=== PATIENT | female | born 1970 | race Caucasian/White ===

== ENCOUNTER 2018-11-24 17:52 | Emergency (ER) | payer OTHER ==
[2018-11-24] MEDS ORDERED: ONDANSETRON 4 MG/2 ML VIAL ONE (18:20)
[2018-11-24] MEDS ORDERED: MORPHINE 4 MG/ML SYR ONE ×2 (18:20→19:09)
[2018-11-24 18:35] LABS: Absolute Lymphocytes (CBC) 3.2 K/uL (0.7-4.9); Absolute Monocytes 0.5 K/uL (0.1-1.3); Absolute Neutrophil 3.5 K/uL (1.8-8.0); Basophils % 0.5 % (0-1.3); Eosinophils % 5.7 % (0-4.4); Hematocrit 40.9 % (36.0-45.0); Lymphocytes % 42.2 % (15.3-44.8); MPV 10.1 fL (7.6-11.3); Monocytes % 6.6 % (3.3-12.3); RBC Red Blood Cell Count 4.59 M/uL (3.86-4.86)
[2018-11-24 18:47] LABS: Albumin 3.9 g/dL (3.4-5.0); Bilirubin Direct 0.1 mg/dL (0-0.2); Bilirubin Total 0.3 mg/dL (0.2-1.0); Potassium 3.8 mmol/L (3.5-5.1); Protein, Total 7.2 g/dL (6.4-8.2)
--- NOTE | 2018-11-24 19:30 | RAD REPORT ---
EXAM DESCRIPTION: CT - Abdomen Pelvis W Contrast - 11/24/2018 7:04 pm CLINICAL HISTORY: Abdominal pain COMPARISON: none. TECHNIQUE: Computed axial tomography of the abdomen pelvis was obtained. 100 cc Isovue-300 was admin istered intravenously. Oral contrast was not requested which limits evaluation of bowel. All CT scans are performed using dose optimization technique as appropriate and may include automated exposure control or mA/KV adjustment according to patient size. FINDINGS: Small hepatic cysts Spleen, pancreas, adrenal and kidneys appear unremarkable. There is no evidence of diverticulitis. The cecum lies midline within the upper pelvis The stomach is distended. Fluid is present within nondilated bowel. An IUD is present within a retroverted uterus Moderate amount of stool is present in the colon IMPRESSION: Fluid within nondilated small bowel may indicate an enteritis Distended stomach
--- NOTE | 2018-11-24 20:03 | EDPHYS ---
Physician Documentation [facility] Name: Tess Schultz Age: 48 yrs Sex: Female : 1970 Arrival Date: 11/24/2018 Time: 17:58 Bed 15 Private MD: ED Physician Mark Ackerman HPI: 11/24 18:16 This 48 yrs old Female presents to ER via Wheelchair with complaints of abdominal pain. jr8 18:16 The patient presents with abdominal pain in the lower abdomen. Onset: The jr8 symptoms/episode began/occurred acutely, today. The symptoms do not radiate. Associated signs and symptoms: none. The symptoms are described as stabbing. Modifying factors: The symptoms are alleviated by nothing, the symptoms are aggravated by nothing. Severity of pain: At its worst the pain was moderate in the emergency department the pain is unchanged. The patient has not experienced similar symptoms in the past. The patient has not recently seen a physician. 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 - Social history:: Smoking status: Patient/guardian denies using tobacco. - Ebola Screening: : No symptoms or risks identified at this time. ROS: 18:16 Eyes: Negative for injury, pain, redness, and discharge, ENT: Negative for injury, jr8 pain, and discharge, Neck: Negative for injury, pain, and swelling, Cardiovascular: Negative for chest pain, palpitations, and edema, Respiratory: Negative for shortness of breath, cough, wheezing, and pleuritic chest pain, Back: Negative for injury and pain, MS/Extremity: Negative for injury and deformity, Skin: Negative for injury, rash, and discoloration, Neuro: Negative for headache, weakness, numbness, tingling, and seizure. 18:16 Abdomen/GI: Positive for abdominal pain, Negative for nausea, vomiting, diarrhea, constipation, abdominal cramps, abdominal distension, anorexia, dysphagia, hematemesis, black/tarry stool, rectal pain, rectal bleeding, bowel incontinence, flatulence. Exam: 18:16 Eyes: Pupils equal round and reactive to light, extra-ocular motions intact. Lids and jr8 lashes normal. Conjunctiva and sclera are non-icteric and not injected. Cornea within normal limits. Periorbital areas with no swelling, redness, or edema. ENT: Nares patent. No nasal discharge, no septal abnormalities noted. Tympanic membranes are normal and external auditory canals are clear. Oropharynx with no redness, swelling, or masses, exudates, or evidence of obstruction, uvula midline. Mucous membranes moist. Neck: Trachea midline, no thyromegaly or masses palpated, and no cervical lymphadenopathy. Supple, full range of motion without nuchal rigidity, or vertebral point tenderness. No Meningismus. Cardiovascular: Regular rate and rhythm with a normal S1 and S2. No gallops, murmurs, or rubs. Normal PMI, no JVD. No pulse deficits. Respiratory: Lungs have equal breath sounds bilaterally, clear to auscultation and percussion. No rales, rhonchi or wheezes noted. No increased work of breathing, no retractions or nasal flaring. Back: No spinal tenderness. No costovertebral tenderness. Full range of motion. Skin: Warm, dry with normal turgor. Normal color with no rashes, no lesions, and no evidence of cellulitis. MS/ Extremity: Pulses equal, no cyanosis. Neurovascular intact. Full, normal range of motion. Neuro: Awake and alert, GCS 15, oriented to person, place, time, and situation. Cranial nerves II-XII grossly intact. Motor strength 5/5 in all extremities. Sensory grossly intact. Cerebellar exam normal. Normal gait. 18:16 Abdomen/GI: Inspection: abdomen appears normal, Bowel sounds: active, all quadrants, Palpation: soft, in all quadrants, moderate abdominal tenderness, in the right lower quadrant and left lower quadrant, mass, is not appreciated, rebound tenderness, is not appreciated, voluntary guarding, is elicited in the right lower quadrant and left lower quadrant, involuntary guarding, is not appreciated, no appreciated organomegaly, Indicators: McBurney's point is not tender, Aparicio's sign is negative, Rovsing's sign is negative, Obturator sign is negative, Psoas sign is negative, Liver: tenderness, is not appreciated. Vital Signs: 18:03 BP 144 / 102; Pulse 62; Resp 26; Temp 98.0; Pulse Ox 100% ; Weight 74.84 kg; Height 5 ph ft. 8 in. (172.72 cm); Pain 8/10; 19:30 BP 116 / 78; Pulse 61; Resp 16; Pulse Ox 100% on R/A; jb4 20:20 BP 104 / 75; Pulse 58; Resp 16; Pulse Ox 100% on R/A; jb4 18:03 Body Mass Index 25.09 (74.84 kg, 172.72 cm) ph MDM: 18:02 Patient medically screened. jr8 19:55 Differential diagnosis: appendicitis, bowel obstruction, diverticulitis, gastritis, jr8 non-specific abd pain, pancreatitis, Pyelonephritis, Ureterolithiasis, urinary tract infection, colitis. Data reviewed: vital signs, nurses notes, lab test result(s), radiologic studies, CT scan. Data interpreted: Pulse oximetry: on room air is 100 %. Interpretation: normal. Counseling: I had a detailed discussion with the patient and/or guardian regarding: the historical points, exam findings, and any diagnostic results supporting the discharge/admit diagnosis, lab results, radiology results, the need for outpatient follow up, a family practitioner, to return to the emergency department if symptoms worsen or persist or if there are any questions or concerns that arise at home. Response to treatment: the patient's symptoms have markedly improved after treatment. Special discussion: Based on the patient's Hx, exam, and Dx evaluation, there is no indication for emergent surgery or inpatient Tx. It is understood by the patient/guardian that if the Sx's persist or worsen they need to return immediately for re-evaluation. 11/24 18:08 Order name: Basic Metabolic Panel; Complete Time: 18:55 ph 11/24 18:08 Order name: CBC with Diff; Complete Time: 18:55 ph 11/24 18:08 Order name: Creatinine for Radiology; Complete Time: 18:55 ph 11/24 18:08 Order name: Hepatic Function; Complete Time: 18:55 ph 11/24 18:08 Order name: Lipase; Complete Time: 18:55 ph 11/24 18:16 Order name: CT Abd/Pelvis - W/Contrast; Complete Time: 19:32 jr8 11/24 18:08 Order name: IV Saline Lock; Complete Time: 18:20 ph 11/24 18:08 Order name: Labs collected and sent; Complete Time: 18:20 ph Administered Medications: 18:19 Drug: Zofran 4 mg Route: IVP; Site: left antecubital; ph 19:03 Follow up: Response: No adverse reaction; Nausea is decreased ph 18:20 Drug: morphine 4 mg Route: IVP; Site: left antecubital; ph 19:03 Follow up: Response: No adverse reaction; Pain is unchanged, physician notified ph 19:21 Drug: morphine 4 mg Route: IVP; Site: left antecubital; jb4 19:47 Follow up: Response: No adverse reaction; Pain is decreased jb4 20:10 Drug: Reglan 10 mg Route: IVP; Site: left antecubital; jb4 20:15 Follow up: Response: No adverse reaction jb4 20:13 Drug: Bentyl 20 mg Route: PO; jb4 20:14 Follow up: Response: No adverse reaction jb4 20:14 Drug: Benadryl 25 mg Route: IVP; Site: left antecubital; jb4 20:14 Follow up: Response: No adverse reaction jb4 Disposition: 11/24/18 20:02 Discharged to Home. Impression: Enteritis. - Condition is Stable. - Discharge Instructions: Viral Gastroenteritis, Adult. - Prescriptions for Bentyl 20 mg Oral Tablet - take 1 tablet by ORAL route every 6 hours As needed; 20 tablet. Zofran 4 mg Oral Tablet - take 1 tablet by ORAL route every 8 hours As needed; 20 tablet. Tylenol- Codeine #3 300-30 mg Oral Tablet - take 2 tablets by ORAL route every 6 hours As needed; 12 tablet. - Medication Reconciliation Form, Thank You Letter, Antibiotic Education, Prescription Opioid Use form. - Follow up: Private Physician; When: 2 - 3 days; Reason: Recheck today's complaints, Continuance of care, Re-evaluation by your physician. - Problem is new. - Symptoms have improved. Addendum: 11/28/2018 11:06 Co-signature as Attending Physician, Mark Ackerman MD I agree with the assessment and c camacho plan of care. Signatures: Dispatcher [employer] [facility] Mark Ackerman MD MD cha Roszak, Josh, PA PA jr8 Sherri Patiño RN RN Kin Lubin RN RN jb4 Corrections: (The following items were deleted from the chart) 11/24 20:32 20:02 11/24/2018 20:02 Discharged to Home. Impression: Enteritis. Condition is Stable. jb4 Forms are Medication Reconciliation Form, Thank You Letter, Antibiotic Education, Prescription Opioid Use. Follow up: Private Physician; When: 2 - 3 days; Reason: Recheck today's complaints, Continuance of care, Re-evaluation by your physician. Problem is new. Symptoms have improved. jr8
--- NOTE | 2018-11-24 20:03 | ER ---
Nurse's Notes [facility] Name: Tess Schultz Age: 48 yrs Sex: Female : 1970 Arrival Date: 11/24/2018 Time: 17:58 Bed 15 Private MD: Diagnosis: Enteritis Presentation: 11/24 18:01 Presenting complaint: Patient states: Sudden onset of lower abdominal pain approx 20 ph min ago, also reports nausea, denies fever, V/D, rates pain 8/10. Transition of care: patient was not received from another setting of care. Onset of symptoms was November 24, 2018. Risk Assessment: Do you want to hurt yourself or someone else? Patient reports no desire to harm self or others. Initial Sepsis Screen: Does the patient meet any 2 criteria? No. Patient's initial sepsis screen is negative. Does the patient have a suspected source of infection? No. Patient's initial sepsis screen is negative. Care prior to arrival: None. 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 - Social history:: Smoking status: Patient/guardian denies using tobacco. - Ebola Screening: : No symptoms or risks identified at this time. Screenin:05 Abuse screen: Denies threats or abuse. Denies injuries from another. Nutritional ph screening: No deficits noted. Tuberculosis screening: No symptoms or risk factors identified. Fall Risk None identified. Assessment: 18:05 General: Appears in no apparent distress. uncomfortable, slender, well groomed, ph Behavior is calm, cooperative, appropriate for age. Pain: Complains of pain in right lower quadrant and left lower quadrant Pain currently is 8 out of 10 on a pain scale. Quality of pain is described as crampy, Pain began suddenly. Neuro: Level of Consciousness is awake, alert, obeys commands, Oriented to person, place, time, situation. Cardiovascular: Capillary refill < 3 seconds in bilateral fingers Patient's skin is warm and dry. Respiratory: Airway is patent Respiratory effort is even, unlabored, Respiratory pattern is tachypnea. GI: Abdomen is flat, non-distended, Reports lower abdominal pain, nausea. : Reports pain in bilateral lower quadrant(s) Denies burning with urination, inability to void. Derm: Skin is intact, is healthy with good turgor, Skin is pink, warm \T\ dry. Musculoskeletal: Circulation, motion, and sensation intact. Range of motion: intact in all extremities. 19:15 Reassessment: Patient appears in no apparent distress at this time. Patient and/or jb4 family updated on plan of care and expected duration. Pain level reassessed. Patient is alert, oriented x 3, equal unlabored respirations, skin warm/dry/pink. Cardiovascular: Patient's skin is warm and dry. Respiratory: Airway is patent Respiratory effort is even, unlabored, Respiratory pattern is regular, symmetrical. 20:20 Reassessment: Patient appears in no apparent distress at this time. Patient and/or jb4 family updated on plan of care and expected duration. Pain level reassessed. Patient is alert, oriented x 3, equal unlabored respirations, skin warm/dry/pink. Discussed D/c, F/u with pt and pt's family, denies questions or concern.s. Vital Signs: 18:03 BP 144 / 102; Pulse 62; Resp 26; Temp 98.0; Pulse Ox 100% ; Weight 74.84 kg; Height 5 ph ft. 8 in. (172.72 cm); Pain 8/10; 19:30 BP 116 / 78; Pulse 61; Resp 16; Pulse Ox 100% on R/A; jb4 20:20 BP 104 / 75; Pulse 58; Resp 16; Pulse Ox 100% on R/A; jb4 18:03 Body Mass Index 25.09 (74.84 kg, 172.72 cm) ph ED Course: 17:58 Patient arrived in ED. sb2 18:01 hSerri Patiño, HARRIS is Primary Nurse. ph 18:02 Alec Segura PA is PHCP. jr8 18:02 Mark Ackerman MD is Attending Physician. jr8 18:03 Triage completed. ph 18:04 Arm band placed on. ph 18:05 Missed attempt(s): 22 gauge in right antecubital area. Bleeding controlled, band aid ph applied, catheter tip intact. 18:07 Patient has correct armband on for positive identification. Bed in low position. Call ph light in reach. Side rails up X 1. Pulse ox on. NIBP on. 18:10 Initial lab(s) drawn, by me, sent to lab. Inserted saline lock: 20 gauge in left em antecubital area, using aseptic technique. Blood collected. 18:18 Radiology exam delayed due to lab results not completed at this time. (BUN/Creatinine) nj IV insertion attempt and/or patient not having appropriate IV at this time. 18:46 Radiology exam delayed due to lab results not completed at this time. (BUN/Creatinine). nj 18:[address] vm2 19:04 CT Abd/Pelvis - W/Contrast In Process Unspecified. EDMS 19:04 CT completed. Patient tolerated procedure well. Patient moved back from CT. nj 20:20 No provider procedures requiring assistance completed. IV discontinued, intact, jb4 bleeding controlled. Administered Medications: 18:19 Drug: Zofran 4 mg Route: IVP; Site: left antecubital; ph 19:03 Follow up: Response: No adverse reaction; Nausea is decreased ph 18:20 Drug: morphine 4 mg Route: IVP; Site: left antecubital; ph 19:03 Follow up: Response: No adverse reaction; Pain is unchanged, physician notified ph 19:21 Drug: morphine 4 mg Route: IVP; Site: left antecubital; jb4 19:47 Follow up: Response: No adverse reaction; Pain is decreased jb4 20:10 Drug: Reglan 10 mg Route: IVP; Site: left antecubital; jb4 20:15 Follow up: Response: No adverse reaction jb4 20:13 Drug: Bentyl 20 mg Route: PO; jb4 20:14 Follow up: Response: No adverse reaction jb4 20:14 Drug: Benadryl 25 mg Route: IVP; Site: left antecubital; jb4 20:14 Follow up: Response: No adverse reaction jb4 Outcome: 20:02 Discharge ordered by . jrBarbra 20:20 Discharged to home ambulatory, with family. jb4 20:20 Condition: stable 20:20 Discharge instructions given to patient, family, significant other, Instructed on discharge instructions, follow up and referral plans. medication usage, Demonstrated understanding of instructions, follow-up care, medications, Prescriptions given X 3. 20:32 Patient left the ED. jb4 Signatures: Dispatcher [employer] EDMS Damien Suggs, PERSONAL INVESTMENT ADVISER PERSONAL INVESTMENT ADVISER Alec Arguello PA PA jr8 Sherri Patiño, RN RN Kin Lubin RN RN jb4 Robert Stapleton Victoria 2 Camille Squires 2 Corrections: (The following items were deleted from the chart) 19:39 16:30 BP 116 / 78; Pulse 61bpm; Resp 16bpm; Pulse Ox 100% RA; jb4 jb4
[2018-11-24] MEDS ORDERED: DIPHENHYDRAMINE 50 MG/ML VIAL ONE (20:11)
[2018-11-24] MEDS ORDERED: METOCLOPRAMIDE 10 MG/2mL INJ ONE (20:11)
[2018-11-24] MEDS ORDERED: DICYCLOMINE HCL 10 MG CAP ONE (20:11)
== END 2018-11-24 20:32 | disposition home or self-care (01) ==
LOC: ER 17:52
DX: K52.9 Noninfective gastroenteritis and colitis, unspecified (principal)
CPT/HCPCS: 36415; 74177; 80048; 80076; 83690; 85025; 96374; 96375; 99284; J2405; J2765; Q9967